=== PATIENT | female | born 1950 | race Caucasian/White ===

== ENCOUNTER 2017-06-23 06:47 | Day surgery (SDC) | payer MEDICARE, BC ==
[~2017-06-23] VITALS: Ht 170.2 cm; Wt 65.8 kg
[~2017-06-23 06:47] MED LIST: ATENOLOL100 MG PO; CALCIUM600 M1 PO; CELEXA40 MG PO; CIPROFLOXACN500 MG PO; CORRECTOL100 MG PO; ELAVIL10 MG PO; HYDROCHLOROT25 MG PO; HYDROXYCHLOR200 MG PO; LIBRIUM10 M1; MULTI 50+ PO; NORVASC10 M1 PO; ROBITUSSIN AC10 ML PO; VENLAFAXINE HCL75 M1 PO; VOLTAREN75 MG PO
[2017-06-23 11:18] VITALS: BP 133/79
== END 2017-06-23 09:00 | disposition home or self-care (01) ==
LOC: ENDO 06:47
PROVIDERS: ATTEND Surgery
PROC: 0DJD8ZZ Inspection of Lower Intestinal Tract, Via Natural or Artificial Opening Endoscopic (ICD-10-PCS; principal; 2017-06-23)
DX: Z12.11 Encounter for screening for malignant neoplasm of colon (principal); K64.4 Residual hemorrhoidal skin tags; I10 Essential (primary) hypertension; F32.9 Major depressive disorder, single episode, unspecified